=== PATIENT | male | born 1975 | race Hispanic/Latino ===

== ENCOUNTER 2021-10-28 10:50 | Emergency (ER) | payer OTHER ==
[2021-10-28 11:03] VITALS: BP 115/102
--- NOTE | 2021-10-28 13:24 | Cat Scan Report ---
CT HEAD WITHOUT CONTRAST INDICATION / CLINICAL INFORMATION: Head injury. Reported loss of consciousness. TECHNIQUE: All CT scans at this location are performed using CT dose reduction for ALARA by means of automated e xposure control. COMPARISON: None available. FINDINGS: HEMORRHAGE: No evidence of intracranial hemorrhage or extra-axial fluid collection. EXTRA-AXIAL SPACES: Cortical sulci, sylvian fissures and basilar cisterns have an unremarkable appear ance. VENTRICULAR SYSTEM: The third and lateral ventricles are of normal size and configuration. CEREBRAL PARENCHYMA: No areas of abnormal brain parenchymal attenuation are identified. There is no i ndication of recent infarction. MIDLINE SHIFT OR HERNIATION: There is no mass effect. CEREBELLUM / BRAINSTEM: Brainstem and cerebellum have an unremarkable appearance. MIDLINE STRUCTURES:No abnormalities of the pituitary gland or pineal region are identified. INTRACRANIAL VESSELS:No abnormalities are identified on this noncontrast head CT. ORBITS: visualized portions of the orbits have an unremarkable appearance. SOFT TISSUES of HEAD: No significant abnormality. CALVARIUM: Evaluation of bone windows reveals no abnormalities. PARANASAL SINUSES / MASTOID AIR CELLS: Visualized portions of the paranasal sinuses are free from inf lammatory mucosal disease. Mastoid air cells are normally pneumatized. IMPRESSION: 1. Normal head CT without contrast. Signer Name: Uche Saucedo MD Signed: 10/28/2021 1:20 PM Workstation Name: [id number]
--- NOTE | 2021-10-28 13:40 | Event Note ---
ED Screening Note Date of service: 10/28/21 Time: 13:38 ED Screening Note: Patient states that he has a history of a clotting disorder and takes 5 mg of Coumadin daily along with a baby aspirin. He states that when he woke up this morning he has some numbness to his left face and left arm. He states that symptoms have since resolved but does have a headache. States that he is here to rule out bleed and check Coumadin levels. This initial assessment/diagnostic orders/clinical plan/treatment(s) is/are subject to change based on patients health status, clinical progression and re- assessment by fellow clinical providers in the ED. Further treatment and workup at subsequent clinical providers discretion. Patient/guardian urged not to elope from the ED as their condition may be serious if not clinically assessed and managed. Initial orders include:
[2021-10-28 14:23] LABS: Alanine Aminotransferase 26 units/L (7-56); Albumin 4.4 g/dL (3.9-5); BUN/Creatinine Ratio 23; Blood Urea Nitrogen 18 mg/dL (9-20); Calcium 9.5 mg/dL (8.4-10.2); Hemolysis Index 19
[2021-10-28 14:29] LABS: Hematocrit 46.7 % (35.5-45.6); Hemoglobin 15.5 gm/dl (11.8-15.2); Mean Corpuscular HGB Conc 33 % (32-34); Mean Corpuscular Volume 96 fl (84-94); Platelet Count 245 K/mm3 (140-440); Red Blood Count 4.88 M/mm3 (3.65-5.03); Red Cell Distribution Width 14.1 % (13.2-15.2)
[2021-10-28 14:39] LABS: INR 1.36 (0.87-1.13)
[2021-10-28 14:40] LABS: Partial Thromboplastin Time 35.4 Sec. (24.2-36.6)
--- NOTE | 2021-10-28 15:03 | Emergency Department Report ---
ED General Adult HPI - General Chief complaint: Recheck/Abnormal Lab/Rx Stated complaint: LT SIDE FACE NUMB Time Seen by Provider: 10/28/21 12:26 Source: patient Mode of arrival: Ambulatory Limitations: No Limitations - History of Present Illness Initial comments: PT PRESENTS [facility] ED FOR LAB RECHECK , pt is here for facial numbness since this morning pt has lopus coagulopathy and on coumadin for blood clot and wa asked to check levels each time he gets numbness or wekaness or stoke like symtpoms Location: face Quality: other (tingling , numbness) Consistency: constant Improves with: none Worsens with: none Associated Symptoms: weakness. denies: denies other symptoms, confusion, chest pain, headaches, loss of appetite, malaise, nausea/vomiting, shortness of breath, syncope Treatments Prior to Arrival: none - Related Data Allergies Allergy/AdvReac Type Severity Reaction Status Date / Time Penicillins Allergy Unknown Verified 10/28/21 11:01 ED Review of Systems ROS: Stated complaint: LT SIDE FACE NUMB Other details as noted in HPI Constitutional: denies: chills, fever Eyes: denies: eye pain, eye discharge, vision change ENT: denies: ear pain, throat pain Respiratory: denies: cough, shortness of breath, wheezing Cardiovascular: denies: chest pain, palpitations Endocrine: no symptoms reported Gastrointestinal: denies: abdominal pain, nausea, diarrhea Genitourinary: denies: urgency, dysuria Musculoskeletal: denies: back pain, joint swelling, arthralgia Skin: denies: rash, lesions Neurological: denies: headache, weakness, paresthesias Psychiatric: denies: anxiety, depression Hematological/Lymphatic: denies: easy bleeding, easy bruising ED Past Medical Hx - Past Medical History Previous Medical History?: No Hx Hypertension: No ED Physical Exam - General Limitations: No Limitations General appearance: alert, in no apparent distress - Head Head exam: Present: atraumatic, normocephalic - Eye Eye exam: Present: normal appearance - ENT ENT exam: Present: mucous membranes moist - Neck Neck exam: Present: normal inspection - Respiratory Respiratory exam: Present: normal lung sounds bilaterally. Absent: respiratory distress - Cardiovascular Cardiovascular Exam: Present: regular rate, normal rhythm. Absent: systolic murmur, diastolic murmur, rubs, gallop - GI/Abdominal GI/Abdominal exam: Present: soft, normal bowel sounds - Rectal Rectal exam: Present: deferred - Extremities Exam Extremities exam: Present: normal inspection - Back Exam Back exam: Present: normal inspection - Neurological Exam Neurological exam: Present: alert, oriented X3 - Psychiatric Psychiatric exam: Present: normal affect, normal mood - Skin Skin exam: Present: warm, dry, intact, normal color. Absent: rash ED Course Vital Signs 10/28/21 11:01 Temperature 97 F L Pulse Rate 73 Respiratory 16 Rate Blood Pressure 115/102 [Left] O2 Sat by Pulse 97 Oximetry ED Medical Decision Making - Lab Data Result diagrams: 10/28/21 13:21 10/28/21 13:21 - Radiology Data Radiology results: report reviewed, image reviewed - Medical Decision Making head ct negative , work up unremarkable, INR is 1.36 , planing to admit for stroke work up but pt refused understands risks Critical care attestation.: If time is entered above; I have spent that time in minutes in the direct care of this critically ill patient, excluding procedure time. ED Disposition Clinical Impression: Left facial numbness, Weakness Disposition: 07 LEFT AGAINST MEDICAL ADVICE Is pt being admited?: No Does the pt Need Aspirin: No Condition: Stable Instructions: Paresthesia, Weakness, [id number] Referrals: PRIMARY CARE, [Primary Care Provider] - 3-5 Days
== END 2021-10-28 15:52 | disposition left against medical advice (07) ==
LOC: ED 10:50
DX: R53.1 Weakness (principal); R20.0 Anesthesia of skin; Z88.0 Allergy status to penicillin
CPT/HCPCS: 36415; 70450; 80053; 85027; 85610; 85730; 99284